=== PATIENT | female | born 2000 | race Two or more races ===

== ENCOUNTER 2025-05-12 12:00 | Inpatient (IN) | payer OTHER ==
[2025-05-06 13:20] LABS: BASO % 0.2 % (0.1-1.2); EOS # 0.08 (0.04-0.54); EOS % 0.9 % (0.7-7.0); LYMPH # 2.54 (1.18-3.74); LYMPH % 27.2 % (19.3-53.1); MEAN PLATELET VOLUME 10.80 fl (9.4-12.4); MONO # 0.60 (0.24-0.82); MONO % 6.4 % (4.7-12.5); NEUT # 6.09 (1.56-6.13); NEUT % 65.1 % (34.0-71.1); RED CELL DISTRIBUTION WIDTH 12.5 % (11.6-14.4)
[2025-05-06 13:22] LABS: URINE APPEARANCE Clear; URINE BILIRRUBIN Negative (NEGATIVE); URINE BLOOD Negative; URINE COLOR Yellow; URINE GLUCOSE Negative (NEGATIVE); URINE KETONE Trace (NEGATIVE); URINE LEUKOCYTE Negative; URINE NITRATE Negative; URINE PROTEIN Negative (NEGATIVE); URINE UROBILINOGEN 0.2 E.U./dl
[2025-05-06 13:25] LABS: URINE BACTERIA 158.3 uL (0.0-1933); URINE EPITHELIAL CELLS 7.0 uL (0.0-38.8); URINE RBC 10.7 uL (0.0-20.8)
[2025-05-06 13:28] LABS: URINE CAST 0.00 uL (0.0-1.40); URINE WBC 1.0 uL (0.0-23.2)
[2025-05-06 14:23] LABS: ALT/SGPT 28.0 U/L (12-78); AST/SGOT 16.0 U/L (15-37); BILIRUBIN TOTAL 0.3 mg/dL (0.3-1.2); BUN CREA RATIO 21.0 (7.0-25.0); CREATININE SERUM 0.72 mg/dL (0.55-1.02); GFR 97.91; GLOBULINA 3.8 G/DL (2.4-3.5); GLUCOSE FASTING 70.0 mg/dL (65-100); OSMOLALITY SERUM 280.0 MOSM/KG (275-295)
[2025-05-06 14:56] LABS: INR 1.06
[2025-05-12] MEDS ORDERED: CEFAZOLIN SODIUM 1,000 MG VIAL ONE ×2 (13:23→19:19)
[2025-05-12] MEDS ORDERED: SUGAMMADEX SODIUM 200 MG/2 ML VIAL IV ONE (14:07)
[2025-05-12] MEDS ORDERED: LIDOCAINE HCL 1%/EPINEPHRINE 20ML VIAL IJ ONE (14:07)
[2025-05-12] MEDS ORDERED: POVIDONE-IODINE 118 ML BOTT TOP ONE (14:07)
[2025-05-12] MEDS ORDERED: BUPIVACAINE HCL/MPF 0.5% 30ML VIAL ONE (14:07)
[2025-05-12] MEDS ORDERED: THROMBIN,HU/FIBRINOGEN/CALCIUM 4 ML SYRINGE TOP ONE (15:06)
[2025-05-12] MEDS ORDERED: FAMOTIDINE/PF 20 MG/2 ML VIAL IV SCH (15:57)
[2025-05-12] MEDS ORDERED: MORPHINE SULFATE 4 MG/ML CARTRIDGE IV PRN (16:00)
[2025-05-12] MEDS ORDERED: ONDANSETRON HCL 2 MG/ML VIAL IV PRN (16:00)
[2025-05-12] MEDS ORDERED: RINGERS SOLUTION,LACTATED 1,000 ML IV SCH (16:00)
[2025-05-12] MEDS ORDERED: KETOROLAC TROMETHAMINE 30 MG VIAL IV SCH (17:00)
[2025-05-12] MEDS ORDERED: CEFAZOLIN SODIUM 1,000 MG VIAL IV SCH (17:00)
[2025-05-12] MEDS ORDERED: KETOROLAC TROMETHAMINE 30 MG VIAL ONE (19:19)
[2025-05-12] MEDS ORDERED: KETOROLAC TROMETHAMINE 30 MG VIAL IV ONE (19:30)
[2025-05-12] MEDS ORDERED: FAMOTIDINE/PF 20 MG/2 ML VIAL ONE (21:04)
[2025-05-12 21:46] LABS: BASO % 0.2 % (0.1-1.2); EOS # 0.00 (0.04-0.54); EOS % 0.0 % (0.7-7.0); LYMPH # 1.73 (1.18-3.74); LYMPH % 14.7 % (19.3-53.1); MEAN PLATELET VOLUME 10.90 fl (9.4-12.4); MONO # 0.80 (0.24-0.82); MONO % 6.8 % (4.7-12.5); NEUT # 9.20 (1.56-6.13); NEUT % 78.0 % (34.0-71.1); RED CELL DISTRIBUTION WIDTH 12.3 % (11.6-14.4)
[2025-05-12 22:08] VITALS: BP 106/65
[2025-05-13] VITALS: BP 101/55; O2SAT 97
[2025-05-13 08:09] VITALS: BP 108/69
[2025-05-13] MEDS ORDERED: SIMETHICONE 125 MG CAPSULE PO SCH (09:00)
[2025-05-13] MEDS ORDERED: ACETAMINOPHEN 500 MG GEL..CAP PO PRN (09:00)
[2025-05-13] MEDS ORDERED: DOCUSATE SODIUM 100MG CAP PO SCH (09:00)
[2025-05-13] MEDS ORDERED: KETOROLAC TROMETHAMINE 30 MG VIAL IV NR (17:00)
[2025-05-13 18:05] VITALS: BP 110/76
== END 2025-05-13 19:19 | disposition home or self-care (01) | DRG 743 ==
LOC: CIR.AMB 12:00 → OB/GYN 20:06
PROVIDERS: ADMIT General Practice; ATTEND General Practice
PROC: 0UB10ZZ Excision of Left Ovary, Open Approach (ICD-10-PCS; principal; 2025-05-12 07:00)
DX: D27.1 Benign neoplasm of left ovary (principal)